=== PATIENT | male | born 1980 | race African-American/Black ===

== ENCOUNTER 2022-04-02 11:06 | Emergency (ER) | payer BC ==
[~2022-04-02] VITALS: Ht 193 cm; Wt 118.0 kg
[2022-04-02 12:27] VITALS: BP 152/89
== END 2022-04-02 12:50 | disposition home or self-care (01) ==
LOC: ER 11:06
DX: I10 Essential (primary) hypertension (principal); F17.210 Nicotine dependence, cigarettes, uncomplicated